=== PATIENT | female | born 1995 | race Caucasian/White ===

== ENCOUNTER 2023-11-20 10:40 | Inpatient (IN) ==
[2023-11-20] MEDS ORDERED: Buffered Lidocaine 1% SYRIN 1 ml INTRADERM ONE (12:07)
[2023-11-20] MEDS ORDERED: Prochlorperazine 5 mg/ml 2 ml VIAL (10 mg) IV PRN (12:07)
[2023-11-20] MEDS ORDERED: Lidocaine 1% VIAL 10 MG/ML 30 ML VIAL INJ PRN (12:07)
[2023-11-20] MEDS ORDERED: Calcium Carb (TUMS) 500 mg CHEW TAB PO PRN (12:11)
[2023-11-20] MEDS ORDERED: Ondansetron 4 mg VIAL 2 MG/ML 2 ml VIAL IV PRN (12:11)
[2023-11-20] MEDS: Lactated Ringers 1000 ml BAG 1,000 ML IV ONE ×2 (14:03→16:20)
[2023-11-20 14:18] LABS: ABS Lymphocytes 1.9 10^3/uL (1.0-4.8); ABS Neutrophils 10.5 10^3/uL (1.5-7.6); Eosinophil % 0.2 %; Hematocrit 38.1 % (35-45); Hemoglobin 12.6 g/dL (11.5-14.3); Lymphocyte % 13.9 %; Mean Corpuscular Hemoglobin 32.7 pg (27-33); Mean Corpuscular Hgb Conc 33.2 g/dL (31-36); Mean Corpuscular Volume 98.6 fL (80-97); Mean Platelet Volume 8.8 fL (7.5-11.2); Platelet Count 207 10^3/uL (150-450); Red Blood Count 3.86 10^6/uL (3.63-4.92); Red Cell Distribution Width 12.9 % (12-17); White Blood Count 13.4 10^3/uL (3.8-11.8)
[2023-11-20] MEDS: Lidocaine 2% JELLY 6 ML Topical TOPICAL ONE (15:31)
[2023-11-20] MEDS: Lactated Ringers 1000 ml BAG 1,000 ML IV SCH (16:05)
[2023-11-20] MEDS ORDERED: OBEPIDURAL (200 ML) 200 ML EPIDURAL ONE (16:21)
[2023-11-20] MEDS ORDERED: fentaNYL 100 mcg/2 ml 50 MCG/ML VIAL ONE (16:38)
[2023-11-20] MEDS ORDERED: Bupivacaine 0.25% SDV PF 10 ML VIAL INJ ONE (16:38)
[2023-11-20] MEDS ORDERED: Phenylephrine 40 mcg/mL 10mL (400mcg) SYRINGE ONE (16:50)
[2023-11-20] MEDS ORDERED: Sodium Citrate/Citric Acid LIQ 15 ML UDC PO PRN (17:50)
[2023-11-20] MEDS ORDERED: Lactated Ringers 1000 ml BAG 1,000 ML IV SCH ×3 (18:00→23:45)
[2023-11-20] MEDS: Lidocaine 1.5% EPI 1:200,000 30 ML SDV ONE (18:03)
[2023-11-20] MEDS: OBEPIDURAL (200 ML) 200 ML EPIDURAL SCH (18:04)
[2023-11-20] MEDS ORDERED: Phenylephrine 40 mcg/mL 10mL (400mcg) SYRINGE IV PUSH PRN (20:06)
[2023-11-20] MEDS: Phenylephrine 40 mcg/mL 10mL (400mcg) SYRINGE IV PUSH PRN (20:45)
[2023-11-20] MEDS ORDERED: Oxytocin in LR 20,000 MILLI.UNIT/1,000 ML BAG IV SCH ×2 (22:30→23:35)
[2023-11-20] MEDS ORDERED: Glycerin ADULT 2.4 gm SUPP PR PRN (23:35)
[2023-11-21] MEDS: Dibucaine 1% OINT 28.35 GM TUBE PR PRN (01:39)
[2023-11-21] MEDS: Witch Hazel PAD JAR TOPICAL PRN (01:40)
[2023-11-21 06:58] LABS: ABS Basophils 0.1 10^3/uL (0.0-0.1); ABS Lymphocytes 2.1 10^3/uL (1.0-4.8); ABS Monocytes 0.7 10^3/uL (0.0-0.9); ABS Neutrophils 10.2 10^3/uL (1.5-7.6); Eosinophil % 0.1 %; Hematocrit 29.5 % (35-45); Hemoglobin 10.1 g/dL (11.5-14.3); Lymphocyte % 16.1 %; Mean Corpuscular Hemoglobin 32.5 pg (27-33); Mean Corpuscular Hgb Conc 34.2 g/dL (31-36); Mean Platelet Volume 8.6 fL (7.5-11.2); Platelet Count 186 10^3/uL (150-450); Red Cell Distribution Width 12.7 % (12-17); White Blood Count 13.1 10^3/uL (3.8-11.8)
[2023-11-21] MEDS: Polyethylene Glycol 3350 17 GM PACKET PO PRN (14:25)
[2023-11-23 08:30] VITALS: BP 103/59
== END 2023-11-23 12:27 | disposition home or self-care (01) | DRG 560 ==
LOC: MCHOBOUT 10:40 → MCHOB 12:01
PROVIDERS: ADMIT Advanced Practice Midwife; ATTEND Advanced Practice Midwife